=== PATIENT | female | born 1990 | race Asian ===

== ENCOUNTER 2017-07-05 16:46 | Emergency (ER) | payer SELFPAY ==
[~2017-07-05] VITALS: Ht 165.1 cm; Wt 64.0 kg
[2017-07-05 17:23] VITALS: BP 136/71; Ht 165.1 cm; Wt 64.0 kg
== END 2017-07-05 18:19 | disposition home or self-care (01) ==
LOC: ED 16:46
DX: S20.219A Contusion of unspecified front wall of thorax, initial encounter (principal); V43.62XA Car passenger injured in collision with other type car in traffic accident, initial encounter; Y93.89 Activity, other specified; Y99.8 Other external cause status; Y92.89 Other specified places as the place of occurrence of the external cause